=== PATIENT | male | born 1995 | race Hispanic/Latino ===

== ENCOUNTER 2025-03-05 12:22 | Emergency (ER) | payer OTHER ==
[~2025-03-05] VITALS: Ht 175.3 cm; Wt 108.9 kg
[2025-03-05 14:10] VITALS: PULSE 78; RESP 15; TEMP 97.8
[2025-03-05] MEDS ORDERED: MEDROL4 M2 PO (15:02)
[2025-03-05] MEDS ORDERED: ULTRAM 50MG50 MG PO (15:02)
[2025-03-05] MEDS ORDERED: METHOCARBAMOL750 MG PO (15:02)
[2025-03-05] MEDS: KETOROLAC TROMETHAMINE 60 MG/2 ML VIAL IM ONE (15:24)
[2025-03-05 16:03] VITALS: BP 115/59; RESP 18; O2SAT 98
== END 2025-03-05 15:55 | disposition home or self-care (01) ==
LOC: ER 14:33
DX: M54.42 Lumbago with sciatica, left side (principal); X50.0XXA Overexertion from strenuous movement or load, initial encounter; Y92.89 Other specified places as the place of occurrence of the external cause; G89.29 Other chronic pain; F17.210 Nicotine dependence, cigarettes, uncomplicated
CPT/HCPCS: 99283; J1885